=== PATIENT | female | born 1955 | race Caucasian/White ===

== ENCOUNTER 2016-09-05 06:07 | Inpatient (IN) | payer OTHER ==
[~2016-09-05] VITALS: Ht 162.6 cm; Wt 82.8 kg
[2016-09-05] VITALS (24 sets, daily range): BP systolic 115–143; BP diastolic 59–75; PULSE 52–70; RESP 11–18; Ht 162.6 cm; Wt 82.8 kg
[~2016-09-05 06:07] MED LIST: ASPI325T32 PO; LEVO75TA5 PO
[2016-09-05] MEDS ORDERED: MIDAZOLAM 1 MG/ML 2 ML INJ ONE (07:40)
[2016-09-05] MEDS ORDERED: FENTAnyl 50 MCG/ML VIAL ONE (07:40)
[2016-09-05] MEDS ORDERED: POLYMYXIN/BACITRACIN 1L IRRIG ONE (07:48)
[2016-09-05] MEDS ORDERED: POLYMYXIN B 500000 UNIT INJ ONE (07:49)
[2016-09-05] MEDS ORDERED: BACITRACIN 50000 UNITS INJ ONE (07:51)
[2016-09-05] MEDS ORDERED: TRANEXAMIC ACID 1,000 MG in SOD CHLORIDE 0.9% 100 ML IV STA (08:00)
--- NOTE | 2016-09-05 08:03 | HPN ---
Date/Time of Note Date/Time of Note DATE: 09/05/16 TIME: 08:02 Interval H&P Admission Note Pt. seen H&P reviewed: No system changes MINGO MONTESINOS MD Sep 05, 2016 08:03
[2016-09-05] MEDS ORDERED: DEXAMETHASONE 4 MG/ML 1 ML INJ ONE (08:17)
[2016-09-05] MEDS ORDERED: ROPIVACAINE 0.5 % 30 ML VIAL ONE (09:36)
[2016-09-05] MEDS ORDERED: CEFAZOLIN 1 GM INJ ONE (09:39)
[2016-09-05] MEDS ORDERED: NEOSTIGMINE 3 MG/3 ML SYRINGE ONE (09:39)
[2016-09-05] MEDS ORDERED: ONDANSETRON 4 MG INJ ONE (09:39)
[2016-09-05] MEDS ORDERED: GLYCOPYRROLATE 0.4 MG INJ ONE (09:39)
[2016-09-05] MEDS ORDERED: TRANEXAMIC ACID 1,000 MG in SOD CHLORIDE 0.9% 100 ML IV ONE (10:00)
[2016-09-05] MEDS ORDERED: HYDROmorphONE (0.2 MG/ML) 10ML SYG IV PRN ×3 (10:30)
[2016-09-05] MEDS ORDERED: LABETALOL HCL 20MG INJ IV PRN (10:30)
[2016-09-05] MEDS ORDERED: ONDANSETRON 4 MG INJ IV PRN (10:30)
[2016-09-05] MEDS ORDERED: MEPERIDINE 25 MG INJ IV PRN (10:30)
[2016-09-05] MEDS ORDERED: NALOXONE (0.4 MG/ML) INJ IV PRN ×2 (10:30→11:00)
[2016-09-05] MEDS ORDERED: hydrALAzine 20 MG INJ IV PRN (10:30)
[2016-09-05] MEDS ORDERED: FENTAnyl 50 MCG/ML VIAL IV PRN ×3 (10:30)
[2016-09-05] MEDS ORDERED: METOCLOPRAMIDE 10 MG INJ IV PRN (10:30)
[2016-09-05] MEDS ORDERED: EPHEDrine SULFATE 50 MG/5 ML SYG IV PRN (10:30)
[2016-09-05] MEDS ORDERED: oxyCODONE 5 MG TAB PO PRN (11:00)
[2016-09-05] MEDS ORDERED: SENNA/DOCUSATE NA (8.6MG/50MG) TAB PO PRN (11:00)
[2016-09-05] MEDS ORDERED: DOCUSATE SODIUM 100 MG CAP PO ONE (11:00)
[2016-09-05] MEDS ORDERED: MAGNESIUM HYDROXIDE 30ML CUP PO PRN (11:00)
[2016-09-05] MEDS ORDERED: ASPIRIN (EC) 325 MG TAB PO ONE (11:00)
[2016-09-05] MEDS: CEFAZOLIN 1 GM/50 ML (PMX) 50 ML IVPB SCH ×2 (11:08→18:18)
--- NOTE | 2016-09-05 11:23 | OPR ---
DATE OF OPERATION: 09/05/2016 PREOPERATIVE DIAGNOSIS: Left knee osteoarthritis. POSTOPERATIVE DIAGNOSIS: Left knee osteoarthritis. OPERATION PERFORMED: Left total knee replacement. SURGEON: Sanjeev Montesinos MD SOLE CEMENTER: Alayna Keller ANESTHESIA: Spinal anesthetic with an adductor canal block. INDICATION: Ms. Alina Smith is a 60-year-old female who has had progressive pain in the left knee. She has failed nonoperative treatment. She has had a successful right total knee replacement and n ow presents for elective left total knee replacement. Risks and benefits were discussed with the patient, risks including but not limited to infection, bl eeding, blood clots, hardware failure, dislocation, loosening, fracture, nerve damage, blood vessel damage, along with other medical, anesthetic and surgical complications were discussed. Informed co nsent was obtained. DESCRIPTION OF PROCEDURE: The patient's correct extremity was identified in the preoperative area. She was brought back to the operating room where she had preoperative antibiotics, given a spinal a nesthetic. She then had general endotracheal anesthesia. Left lower extremity was prepped and drap ed in a standard sterile manner. A timeout was performed. Esmarch was used. A thigh tourniquet wa s inflated to 250 mmHg. Standard midline incision was used through the skin and subcutaneous tissue , incised the fascia medially for medial parapatellar arthrotomy, made an entry hole in distal femur . I used a distal femoral cutting guide and made my anterior, posterior chamfer cuts. I then turne d my attention to the tibia, used an extramedullary alignment guide, protecting the posterior medial and lateral structures and made my tibial cuts. Flexion and extension gaps were checked and osteop hytes were removed. Flexion and extension gaps were symmetric. At this point, I trialed a 2 tibia, 2 femur and a 9 insert. The knee went from full extension to full flexion with just a ____ opening and varus and valgus stress. I then turned my attention to the patella using an [id number] metal type cutting guide, cut the patella area to appropriate thickness. I then marked the rotation of t he tibia. I made the peg holes through the femoral trial, took out all my instruments. I punched t he tibia and then thoroughly irrigated the bony surfaces, dried them with a lap sponge. I then proc eeded to cement a size 2 tibia and size 2 femur with a 9 trial insert. The symmetric 33 patella was cemented as well. After cement hardened, I let down the tourniquet, obtained adequate hemostasis. The 9 trial insert was taken out and a 9 all-poly insert was placed. All the components were from [employer]. At this point, I thoroughly irrigated the knee, put a deep drain in for drainage. I close d the medial parapatellar arthrotomy with interrupted #1 Vicryl, subcutaneous tissue was closed with 2-0 Vicryl, skin with dennys. Dry sterile dressings were applied. The patient's foot was warm wi th a 2+ dorsalis pedis pulse at the end of the case. The patient was then extubated and transported to recovery in stable condition. Dictated By: SANJEEV MONTESINOS MD, RA/BRANDEE Conf#: [id number] DID#: [id number]
[2016-09-05] MEDS: oxyCODONE 5 MG TAB PO PRN ×3 (13:19→22:57)
--- NOTE | 2016-09-05 15:49 | OPR ---
Date/Time of Note Date/Time of Note DATE: 09/05/16 TIME: 15:48 Operative Report Free Text/Dictation See note in paper chart Procedure Date: Sep 05, 2016 Preoperative Diagnosis Left Knee OA Postoperative Diagnosis same Operation Performed left total knee replacement Surgeon: MINGO MONTESINOS MD Poultry Hatchery Manager: FERNANDO MARIE Anesthesia: general, spinal Estimated Blood Loss: 100 - 150 ml's Complications: None Disposition: PACU MINGO MONTESINOS MD Sep 05, 2016 15:49
--- NOTE | 2016-09-05 16:47 | RADRPT ---
PROCEDURE: XR Left Knee. CLINICAL INDICATION: Left knee pain. Postop. TECHNIQUE: Two views. Frontal and lateral. COMPARISON: 04/11/2016. FINDINGS: There is no fracture or dislocation. Anterior skin dennys and surgical drain are noted. There is gas in the soft tissues from the recen t surgery. There is a total left knee arthroplasty which appears satisfactory. There is no lytic or blastic lesion. There is no joint effusion. IMPRESSION: 1. Satisfactory postoperative appearance of the left knee. RPTAT: QQ .Quirino Kenyon MD, MD Date Time Electronically viewed and signed by .Quirino Kenyon MD, MD on 09/05/2016 16:46 .R/
[2016-09-05] MEDS ORDERED: morphine 2 MG INJ IV PRN (17:30)
[2016-09-05] MEDS ORDERED: POTASSIUM CHLORIDE (SR) 20 MEQ TAB PO STA (17:59)
[2016-09-05] MEDS ORDERED: ACETAMINOPHEN 325 MG TAB PO PRN (18:00)
[2016-09-05] MEDS: NS + KCL 20 MEQ 1,000 ML IV SCH (18:18)
--- NOTE | 2016-09-05 19:15 | HP ---
DATE OF ADMISSION: 09/05/2016 CHIEF COMPLAINT AND HISTORY OF PRESENT ILLNESS: The patient is a 60-year-old female well known to abhinav dominick from previous admission. The patient has history of osteoarthritis, bilateral knee and underwent right knee replacement back in March 2016. The patient also has history of hypothyroidism. Tomás juárez was seen by Dr. Mccormack as an outpatient for ongoing left knee osteoarthritis. The patient was brought into the hospital today and underwent left total knee replacement. Patient denies any ches t pain. Postoperative pain is reasonably controlled. Denies any abdominal pain, no reported recent fever or chills. No reported recent vomiting or diarrhea. Denies any numbness, tingling, or weaknes s in any extremity. The patient is breathing comfortably and remains awake, alert. REVIEW OF SYSTEMS: The rest of review of systems unremarkable. PAST MEDICAL HISTORY: As stated above. PAST SURGICAL HISTORY: Status post and status post hysterectomy and status post right kne e replacement. MEDICATIONS: Prior to admission levothyroxine. FAMILY HISTORY: Mother has history of diabetes. Father due to lung cancer. SOCIAL HISTORY: No smoking, no alcohol. PHYSICAL EXAMINATION: GENERAL: The patient is conscious, awake, alert. VITAL SIGNS: Temperature 97.3, pulse 56, blood pressure 130/65, O2 saturation 98% on room air. HEENT: Conjunctivae and lids normal. Oropharynx clear. NECK: Supple. No mass, no thyromegaly. LUNGS: Clear to auscultation. CARDIOVASCULAR: S1, S2 normal. No murmur, gallop, or rub. ABDOMEN: Soft, nondistended, nontender. Bowel sounds present. EXTREMITIES: No leg edema. Pedal pulses palpable. NEUROLOGIC: The patient is awake, alert, fairly oriented. Detailed neurological examination was de ferred due to recent surgery, but patient does not appear to have any gross sensorimotor deficit. LABORATORY DATA: WBC 13, hemoglobin 10.3, platelet 258. Chemistry: Sodium 140, potassium 3.1, BUN 6 , creatinine 0.5, glucose 104. IMPRESSION: 1. Left knee osteoarthritis status post total knee replacement. 2. Right knee osteoarthritis status post right total knee replacement back in 2015. 3. Hypothyroidism. PLAN: Patient admitted on medical floor. Patient will be given IV cefazolin as per protocol. Negar grant has been started on aspirin for DVT prophylaxis and will be continued on Tylenol, Percocet and I V morphine, depending upon the severity of the pain. Plan of care discussed with the patient's fami ly. Further recommendation depends on hospital course and recommendations from Dr. Mccormack. Orestes weaver, we will replace potassium and will do followup labs. Dictated By: MICHELLE GUAJARDO/BRANDEE Conf#: [id number] DID#: [id number]
[2016-09-06] VITALS: BP 110/58; RESP 19
[2016-09-06] MEDS: CEFAZOLIN 1 GM/50 ML (PMX) 50 ML IVPB SCH (03:08)
[2016-09-06 04:45] VITALS: BP 118/67; PULSE 63; RESP 16
[2016-09-06] MEDS: oxyCODONE 5 MG TAB PO PRN ×5 (04:50→20:09)
[2016-09-06 05:08] LABS: ADD SCAN DIFF NO
[2016-09-06 05:20] LABS: BASOPHIL # 0.1 10^3/ul (0.0-0.1); BASOPHILS % 0.3 % (0.0-2.0); EOSINOPHILS % 0.1 % (0.0-7.0); HEMATOCRIT 33.4 % (37.0-47.0); HEMOGLOBIN 10.9 g/dl (12.0-16.0); LYMPHOCYTES # 2.2 10^3/ul (0.8-2.9); LYMPHOCYTES % 13.2 % (15.0-51.0); MEAN CORPUSCULAR HEMOGLOBIN 28.9 pg (29.0-33.0); MEAN CORPUSCULAR HGB CONC 32.6 g/dl (32.0-37.0); MEAN CORPUSCULAR VOLUME 88.6 fl (82.0-101.0); MEAN PLATELET VOLUME 10.5 fl (7.4-10.4); MONOCYTE # 1.1 10^3/ul (0.3-0.9); MONOCYTES % 6.7 % (0.0-11.0); NEUTROPHIL # 13.3 10^3/ul (1.6-7.5); NEUTROPHILS % 79.3 % (39.0-77.0); PLATELET COUNT 313 10^3/UL (140-415); RED BLOOD COUNT 3.77 10^6/ul (4.20-5.40); RED CELL DISTRIBUTION WIDTH 15.3 % (11.5-14.5); WHITE BLOOD COUNT 16.7 10^3/ul (4.8-10.8)
[2016-09-06 05:28] LABS: INR 1.18; PROTIME 15.1 Sec (12.2-14.2); PT RATIO 1.2
[2016-09-06 05:53] LABS: POTASSIUM 3.9 mmol/L (3.5-5.1)
[2016-09-06 05:56] LABS: CREATININE 0.57 mg/dl (0.44-1.00)
[2016-09-06 05:57] LABS: CALCIUM 8.2 mg/dl (8.4-10.2)
[2016-09-06] MEDS: LEVOTHYROXINE 75 MCG TAB PO SCH (06:31)
[2016-09-06 07:30] VITALS: BP 115/60; RESP 20
[2016-09-06] MEDS: ASPIRIN (EC) 325 MG TAB PO SCH (08:44)
[2016-09-06] MEDS: CELECOXIB 200 MG CAP PO SCH ×2 (08:44→20:08)
[2016-09-06] MEDS: DOCUSATE SODIUM 100 MG CAP PO SCH ×2 (08:44→20:08)
--- NOTE | 2016-09-06 10:45 | PN ---
Date/Time of Note Date/Time of Note DATE: 09/06/16 TIME: 10:43 Assessment/Plan Lines/Catheters IV Catheter Type (from Nrsg): Peripheral IV Sotelo in Place (from Nrsg): Yes Assessment/Plan Assessment/Plan s/p Left total knee replacement Doing well Incentive spirometer OOB with PT Aspirin and SCD's for DVT prophylaxis Dressing change in AM Discharge planning Subjective 24 Hr Interval Summary Complaints of pain. Exam/Review of Systems Vital Signs Vitals Vital Signs Date Time Temp Pulse Resp B/P Pulse Ox O2 Delivery O2 Flow Rate FiO2 09/06/16 07:30 97.8 66 20 115/60 97 09/06/16 04:45 Room Air Intake and Output 09/05/16 09/05/16 09/06/16 15:00 23:00 07:00 Intake Total 2050 ml 730 ml 2500 ml Output Total 560 ml 1340 ml 2460 ml Balance 1490 ml -610 ml 40 ml Exam Free Text/Dictation Calf soft. Dressing c/d/i. Intact motor and sensory function in toes. Foot warm and well perfused Results Result Diagram: 09/06/16 0422 09/06/16 0422 MINGO MONTESINOS MD Sep 06, 2016 10:45
--- NOTE | 2016-09-06 10:47 | PDOCDIS ---
Discharge Instructions CONDITION Patient Condition: Good HOME CARE INSTRUCTIONS: Diet Instructions: RegularSpecial Diet: REGULAR DIET ACTIVITY: Activity Restrictions: Weight Bearing FOLLOW UP/APPOINTMENTS Appointments Follow up 2 weeks OTHER ORDERS: Other Orders: 1. Aspirin 325 mg po qday x 2 weeks 2. CPM for home use 0-90 degrees twice a day. 3. Home health PT 4. Elevated Toilet Seat 5. Front wheel walker MINGO MONTESINOS MD Sep 06, 2016 10:47
[2016-09-06] MEDS ORDERED: ONDANSETRON 4 MG INJ IV PRN (11:00)
--- NOTE | 2016-09-06 11:52 | PN ---
Date/Time of Note Date/Time of Note DATE: 09/06/16 TIME: 11:51 Assessment/Plan VTE Prophylaxis VTE Prophylaxis Intervention: other Lines/Catheters IV Catheter Type (from Nrsg): Peripheral IV Urinary Cath still in place: Yes Reason Cath still needed: skin wounds contaminated by urine Assessment/Plan Chief Complaint/Hosp Course 1. Left knee osteoarthritis status post total knee replacement. 2. Right knee osteoarthritis status post right total knee replacement back in 2016. 3. Hypothyroidism. Problems: Subjective 24 Hr Interval Summary Free Text/Dictation Patient complain of some pain from surgery Exam/Review of Systems Vital Signs Vitals Vital Signs Date Time Temp Pulse Resp B/P Pulse Ox O2 Delivery O2 Flow Rate FiO2 09/06/16 07:30 97.8 66 20 115/60 97 09/06/16 04:45 Room Air Intake and Output 09/05/16 09/05/16 09/06/16 15:00 23:00 07:00 Intake Total 2050 ml 730 ml 2500 ml Output Total 560 ml 1340 ml 2460 ml Balance 1490 ml -610 ml 40 ml Exam Constitutional: well developed Head: atraumatic, normocephalic Neck: supple Respiratory: clear to auscultation Cardiovascular: regular rate and rhythm Gastrointestinal: non-tender, soft Extremities: normal pulses Results Result Diagram: 09/06/162 09/06/16 0422 Results 24 hrs Laboratory Tests Test 09/06/16 04:22 Anion Gap 13 Basophils # 0.1 Basophils % 0.3 Blood Urea Nitrogen 11 Calcium Level 8.2 L Carbon Dioxide Level 29 Chloride Level 102 Creatinine 0.57 Eosinophils # 0.0 Eosinophils % 0.1 Glucose Level 125 Hematocrit 33.4 L Hemoglobin 10.9 L INR International Normalized Ratio 1.18 Lymphocytes # 2.2 Lymphocytes % 13.2 L Mean Corpuscular Hemoglobin 28.9 L Mean Corpuscular Hemoglobin Concent 32.6 Mean Corpuscular Volume 88.6 Mean Platelet Volume 10.5 #H Monocytes # 1.1 H Monocytes % 6.7 Neutrophils # 13.3 H Neutrophils % 79.3 H Nucleated Red Blood Cells # 0.0 Nucleated Red Blood Cells % 0.0 Platelet Count 313 Potassium Level 3.9 Prothrombin Time 15.1 H Prothrombin Time Ratio 1.2 Red Blood Count 3.77 L Red Cell Distribution Width 15.3 H Sodium Level 140 White Blood Count 16.7 #H Medications Medications Current Medications Naloxone HCl (Narcan) 0.2 mg Q2M PRN IV FOR RESP RATE 8 OR LESS; Start at 10:30 Oxycodone HCl (Roxicodone) 20 mg Q3H PRN PO PAIN LEVEL 8-10 Last administered on 09/06/16 04:50; Admin Dose 20 MG; Start 09/05/16 at 11:00 Oxycodone HCl (Roxicodone) 10 mg Q3H PRN PO PAIN LEVEL 4-7 Last administered on 09/06/16 08:44; Admin Dose 10 MG; Start 09/05/16 at 11:00 Oxycodone HCl (Roxicodone) 5 mg Q3H PRN PO PAIN LEVEL 1-3; Start 09/05/16 at 11 :00 Ondansetron HCl (Zofran Inj) 4 mg Q4H PRN IV NAUSEA AND/OR VOMITING; Start at 11:00 Aspirin (Ecotrin) 325 mg QAM PO Last administered on 09/06/16 08:44; Admin Dose 325 MG; Start 09/06/16 at 09:00 Celecoxib (Celebrex) 200 mg BID PO Last administered on 09/06/16 08:44; Admin Dose 200 MG; Start 09/06/16 at 09:00 Pantoprazole (Protonix Tab) 40 mg DAILY@06 PO ; Start 09/07/16 at 06:00 Docusate Sodium (Colace) 200 mg BID PO Last administered on 09/06/16 08:44; Admin Dose 200 MG; Start 09/06/16 at 09:00; Stop 09/09/16 at 08:59 Senna/Docusate Sodium (Senokot-S) 2 tab BID PRN PO CONSTIPATION Last administered on 09/06/16 08:43; Admin Dose 2 TAB; Start 09/05/16 at 11:00 Magnesium Hydroxide (Milk Of Mag) 30 ml HS PRN PO CONSTIPATION; Start 09/05/16 at 11:00 Naloxone HCl (Narcan) 0.2 mg Q2M PRN IV DECREASED REPIRATORY RATE; Start at 11:00 Morphine Sulfate (morphine) 2 mg Q2H PRN IV PAIN Last administered on 17:28; Admin Dose 2 MG; Start 09/05/16 at 17:30 Levothyroxine Sodium (Synthroid) 75 mcg DAILY@0630 PO Last administered on 09/06 06:31; Admin Dose 75 MCG; Start 09/06/16 at 06:30 Acetaminophen 650 mg 650 mg Q4H PRN PO PAIN AND OR ELEVATED TEMP; Start at 18:00 Potassium Chloride/Sodium Chloride (NS-KCl 20 Meq) 1,000 ml @ 75 mls/hr [id number] IV Last administered on 09/05/16 18:18; Admin Dose 75 MLS/HR; Start at 18:00 SIMBA LAKE Sep 06, 2016 11:51
[2016-09-06] MEDS: NS + KCL 20 MEQ 1,000 ML IV SCH ×2 (12:02→20:08)
[2016-09-06 19:00] VITALS: BP 143/69; RESP 18
[2016-09-06 19:42] VITALS: BP 140/70; PULSE 90; RESP 18
[2016-09-07 05:36] LABS: ADD SCAN DIFF NO
[2016-09-07 05:40] LABS: BASOPHIL # 0.1 10^3/ul (0.0-0.1); BASOPHILS % 0.8 % (0.0-2.0); EOSINOPHILS # 0.2 10^3/ul (0.0-0.5); EOSINOPHILS % 1.9 % (0.0-7.0); HEMATOCRIT 32.7 % (37.0-47.0); HEMOGLOBIN 10.6 g/dl (12.0-16.0); LYMPHOCYTES # 2.2 10^3/ul (0.8-2.9); LYMPHOCYTES % 17.3 % (15.0-51.0); MEAN CORPUSCULAR HEMOGLOBIN 28.8 pg (29.0-33.0); MEAN CORPUSCULAR HGB CONC 32.4 g/dl (32.0-37.0); MEAN CORPUSCULAR VOLUME 88.9 fl (82.0-101.0); MEAN PLATELET VOLUME 10.4 fl (7.4-10.4); MONOCYTE # 1.1 10^3/ul (0.3-0.9); MONOCYTES % 8.7 % (0.0-11.0); NEUTROPHIL # 8.8 10^3/ul (1.6-7.5); NEUTROPHILS % 70.8 % (39.0-77.0); PLATELET COUNT 286 10^3/UL (140-415); RED BLOOD COUNT 3.68 10^6/ul (4.20-5.40); RED CELL DISTRIBUTION WIDTH 15.5 % (11.5-14.5); WHITE BLOOD COUNT 12.5 10^3/ul (4.8-10.8)
[2016-09-07] MEDS: PANTOPRAZOLE (EC) 40 MG TAB PO SCH (05:54)
[2016-09-07] MEDS: LEVOTHYROXINE 75 MCG TAB PO SCH (05:54)
[2016-09-07 05:58] LABS: POTASSIUM 3.7 mmol/L (3.5-5.1)
[2016-09-07 06:00] LABS: CREATININE 0.68 mg/dl (0.44-1.00)
[2016-09-07 06:01] LABS: CALCIUM 8.4 mg/dl (8.4-10.2); INR 1.2; PROTIME 15.3 Sec (12.2-14.2); PT RATIO 1.2
[2016-09-07] MEDS: CELECOXIB 200 MG CAP PO SCH ×2 (08:29→21:26)
[2016-09-07] MEDS: ASPIRIN (EC) 325 MG TAB PO SCH (08:29)
[2016-09-07] MEDS: DOCUSATE SODIUM 100 MG CAP PO SCH ×2 (08:30→21:26)
[2016-09-07 08:56] VITALS: BP 112/59; RESP 18
[2016-09-07] MEDS: NS + KCL 20 MEQ 1,000 ML IV SCH ×2 (10:00→23:04)
--- NOTE | 2016-09-07 11:59 | PN ---
Date/Time of Note Date/Time of Note DATE: 09/07/16 TIME: 11:58 Assessment/Plan VTE Prophylaxis VTE Prophylaxis Intervention: other Lines/Catheters IV Catheter Type (from Nrsg): Saline Lock Urinary Cath still in place: Yes Reason Cath still needed: skin wounds contaminated by urine Assessment/Plan Chief Complaint/Hosp Course 1. Left knee osteoarthritis status post total knee replacement. 2. Right knee osteoarthritis status post right total knee replacement back in 2016. 3. Hypothyroidism. Problems: Subjective 24 Hr Interval Summary Free Text/Dictation Patient has some pain in knee, has ambulated with assistance Exam/Review of Systems Vital Signs Vitals Vital Signs Date Time Temp Pulse Resp B/P Pulse Ox O2 Delivery O2 Flow Rate FiO2 09/07/16 08:56 98.0 83 18 112/59 93 09/06/16 19:42 Room Air Intake and Output 09/06/16 09/06/16 09/07/16 15:00 23:00 07:00 Intake Total 1565 ml 1200 ml Output Total 450 ml 1100 ml Balance 1115 ml 100 ml Exam Constitutional: well developed Head: atraumatic, normocephalic Neck: supple Respiratory: clear to auscultation Cardiovascular: regular rate and rhythm Gastrointestinal: non-tender, soft Extremities: normal pulses Results Result Diagram: 09/07/16 0432 09/07/16 0432 Results 24 hrs Laboratory Tests Test 09/07/16 04:32 Anion Gap 13 Basophils # 0.1 Basophils % 0.8 Blood Urea Nitrogen 12 Calcium Level 8.4 Carbon Dioxide Level 30 Chloride Level 102 Creatinine 0.68 Eosinophils # 0.2 Eosinophils % 1.9 Glucose Level 112 Hematocrit 32.7 L Hemoglobin 10.6 L INR International Normalized Ratio 1.20 Lymphocytes # 2.2 Lymphocytes % 17.3 Mean Corpuscular Hemoglobin 28.8 L Mean Corpuscular Hemoglobin Concent 32.4 Mean Corpuscular Volume 88.9 Mean Platelet Volume 10.4 Monocytes # 1.1 H Monocytes % 8.7 Neutrophils # 8.8 H Neutrophils % 70.8 Nucleated Red Blood Cells # 0.0 Nucleated Red Blood Cells % 0.0 Platelet Count 286 Potassium Level 3.7 Prothrombin Time 15.3 H Prothrombin Time Ratio 1.2 Red Blood Count 3.68 L Red Cell Distribution Width 15.5 H Sodium Level 141 White Blood Count 12.5 #H Medications Medications Current Medications Naloxone HCl (Narcan) 0.2 mg Q2M PRN IV FOR RESP RATE 8 OR LESS; Start at 10:30 Oxycodone HCl (Roxicodone) 20 mg Q3H PRN PO PAIN LEVEL 8-10 Last administered on 09/06/16 20:09; Admin Dose 20 MG; Start 09/05/16 at 11:00 Oxycodone HCl (Roxicodone) 10 mg Q3H PRN PO PAIN LEVEL 4-7 Last administered on 09/06/16 12:02; Admin Dose 10 MG; Start 09/05/16 at 11:00 Oxycodone HCl (Roxicodone) 5 mg Q3H PRN PO PAIN LEVEL 1-3; Start 09/05/16 at 11 :00 Ondansetron HCl (Zofran Inj) 4 mg Q4H PRN IV NAUSEA AND/OR VOMITING; Start at 11:00 Aspirin (Ecotrin) 325 mg QAM PO Last administered on 09/07/16 08:29; Admin Dose 325 MG; Start 09/06/16 at 09:00 Celecoxib (Celebrex) 200 mg BID PO Last administered on 09/07/16 08:29; Admin Dose 200 MG; Start 09/06/16 at 09:00 Pantoprazole (Protonix Tab) 40 mg DAILY@06 PO Last administered on 09/07/16 05 :54; Admin Dose 40 MG; Start 09/07/16 at 06:00 Docusate Sodium (Colace) 200 mg BID PO Last administered on 09/07/16 08:30; Admin Dose 200 MG; Start 09/06/16 at 09:00; Stop 09/09/16 at 08:59 Senna/Docusate Sodium (Senokot-S) 2 tab BID PRN PO CONSTIPATION Last administered on 09/06/16 08:43; Admin Dose 2 TAB; Start 09/05/16 at 11:00 Magnesium Hydroxide (Milk Of Mag) 30 ml HS PRN PO CONSTIPATION; Start 09/05/16 at 11:00 Naloxone HCl (Narcan) 0.2 mg Q2M PRN IV DECREASED REPIRATORY RATE; Start at 11:00 Morphine Sulfate (morphine) 2 mg Q2H PRN IV PAIN Last administered on 17:28; Admin Dose 2 MG; Start 09/05/16 at 17:30 Levothyroxine Sodium (Synthroid) 75 mcg DAILY@0630 PO Last administered on 09/07 05:54; Admin Dose 75 MCG; Start 09/06/16 at 06:30 Acetaminophen 650 mg 650 mg Q4H PRN PO PAIN AND OR ELEVATED TEMP; Start at 18:00 Potassium Chloride/Sodium Chloride (NS-KCl 20 Meq) 1,000 ml @ 75 mls/hr [id number] IV Last administered on 09/06/16 20:08; Admin Dose 75 MLS/HR; Start at 18:00 SIMBA LAKE Sep 07, 2016 11:59
[2016-09-07] MEDS: oxyCODONE 5 MG TAB PO PRN (15:53)
[2016-09-07 19:51] VITALS: BP 122/65; RESP 16
[2016-09-08] MEDS: oxyCODONE 5 MG TAB PO PRN ×2 (01:20→16:13)
[2016-09-08 05:06] LABS: ADD SCAN DIFF NO
[2016-09-08 05:18] LABS: BASOPHIL # 0.1 10^3/ul (0.0-0.1); BASOPHILS % 1.1 % (0.0-2.0); EOSINOPHILS # 0.6 10^3/ul (0.0-0.5); EOSINOPHILS % 5.6 % (0.0-7.0); HEMATOCRIT 31.2 % (37.0-47.0); LYMPHOCYTES # 2.5 10^3/ul (0.8-2.9); LYMPHOCYTES % 24.1 % (15.0-51.0); MEAN CORPUSCULAR HEMOGLOBIN 28.8 pg (29.0-33.0); MEAN CORPUSCULAR HGB CONC 32.1 g/dl (32.0-37.0); MEAN CORPUSCULAR VOLUME 89.9 fl (82.0-101.0); MEAN PLATELET VOLUME 10.4 fl (7.4-10.4); MONOCYTE # 0.8 10^3/ul (0.3-0.9); MONOCYTES % 7.3 % (0.0-11.0); NEUTROPHIL # 6.3 10^3/ul (1.6-7.5); NEUTROPHILS % 61.5 % (39.0-77.0); PLATELET COUNT 272 10^3/UL (140-415); RED BLOOD COUNT 3.47 10^6/ul (4.20-5.40); RED CELL DISTRIBUTION WIDTH 15.6 % (11.5-14.5); WHITE BLOOD COUNT 10.2 10^3/ul (4.8-10.8)
[2016-09-08 05:35] LABS: POTASSIUM 3.3 mmol/L (3.5-5.1)
[2016-09-08 05:38] LABS: CREATININE 0.61 mg/dl (0.44-1.00)
[2016-09-08 05:39] LABS: CALCIUM 8.1 mg/dl (8.4-10.2)
[2016-09-08 05:43] LABS: INR 1.11; PROTIME 14.3 Sec (12.2-14.2); PT RATIO 1.1
[2016-09-08] MEDS: PANTOPRAZOLE (EC) 40 MG TAB PO SCH (05:54)
[2016-09-08] MEDS: LEVOTHYROXINE 75 MCG TAB PO SCH (05:54)
[2016-09-08 07:51] VITALS: BP 102/59; RESP 18
[2016-09-08] MEDS: CELECOXIB 200 MG CAP PO SCH (08:52)
[2016-09-08] MEDS: ASPIRIN (EC) 325 MG TAB PO SCH (08:52)
[2016-09-08] MEDS: DOCUSATE SODIUM 100 MG CAP PO SCH (08:52)
[2016-09-08] MEDS: NS + KCL 20 MEQ 1,000 ML IV SCH (12:40)
--- NOTE | 2016-09-08 13:03 | PN ---
Date/Time of Note Date/Time of Note DATE: 09/08/16 TIME: 13:01 Assessment/Plan Lines/Catheters IV Catheter Type (from Nrs): Saline Lock Sotelo in Place (from Nrs): No Assessment/Plan Assessment/Plan Doing well Discharge home today OOB with PT Aspirin 325 mg po qday and JOIE hose for dvt prophylaxis F/u office 2 weeks Subjective 24 Hr Interval Summary No complaints. Ambulating. Exam/Review of Systems Vital Signs Vitals Vital Signs Date Time Temp Pulse Resp B/P Pulse Ox O2 Delivery O2 Flow Rate FiO2 09/08/16 07:51 97.8 78 18 102/59 92 09/06/16 19:42 Room Air Intake and Output 09/07/16 09/07/16 09/08/16 15:00 23:00 07:00 Intake Total 800 ml Output Total 900 ml Balance -100 ml Exam Free Text/Dictation Inc c/d/i. No erythema Calf soft and non tender Intact motor and sensory function in toes Foot warm Results Result Diagram: 09/08/16 0419 09/08/16 0419 MINGO MONTESINOS MD Sep 08, 2016 13:03
[2016-09-08] MEDS ORDERED: POTASSIUM CHLORIDE (SR) 10 MEQ TAB PO ONE (16:00)
[2016-09-08] MEDS ORDERED: ASPI325T32 PO (17:34)
[2016-09-08] MEDS ORDERED: HYDR-906 PO (17:34)
== END 2016-09-08 18:40 | disposition home health service (06) | DRG 470 ==
LOC: REC 06:07 → EDSTATUS 08:00 → MS1 11:52
PROVIDERS: ADMIT Specialist; ATTEND Internal Medicine
PROC: 0SRD0JA Replacement of Left Knee Joint with Synthetic Substitute, Uncemented, Open Approach (ICD-10-PCS; principal; 2016-09-05 08:00)
DX: M17.12 Unilateral primary osteoarthritis, left knee (principal); E03.9 Hypothyroidism, unspecified; Z96.651 Presence of right artificial knee joint
CPT/HCPCS: 73560; 80048; 85025; 85610; 86850; 86900; 86901; 87086; 88304; 88311; 97110; 97116; 97162; 97530; C1713; J0690; J1100; J2250; J2270; J2405; J2710; J2795; J3010; J3480